=== PATIENT | male | born 1985 | race African-American/Black ===

== ENCOUNTER 2017-02-17 01:37 | Emergency (ER) | payer OTHER ==
[~2017-02-17] VITALS: Ht 172.7 cm; Wt 65.0 kg
[2017-02-17 01:40] VITALS: BP 124/86
== END 2017-02-17 02:30 | disposition left against medical advice (07) ==
LOC: ER 01:37
DX: S41.112A Laceration without foreign body of left upper arm, initial encounter (principal); Z53.21 Procedure and treatment not carried out due to patient leaving prior to being seen by health care provider; X58.XXXA Exposure to other specified factors, initial encounter; Y93.89 Activity, other specified; Y92.89 Other specified places as the place of occurrence of the external cause; Y99.8 Other external cause status

== ENCOUNTER 2023-06-15 12:55 | Emergency (ER) | payer OTHER ==
[~2023-06-15] VITALS: Ht 172.7 cm; Wt 64.0 kg
[2023-06-15 12:59] VITALS: O2SAT 96
[2023-06-15] MEDS: METHYLPREDNISOLONE SOD SUCC 125MG/2ML (ACT-O-VIAL) IV ONE (14:05)
[2023-06-15] MEDS: FAMOTIDINE 20MG/2ML VIAL IV ONE (14:05)
[2023-06-15] MEDS ORDERED: P50 MT (17:22)
[2023-06-15] MEDS ORDERED: DIPH25CA83 MT (17:22)
[2023-06-15] MEDS ORDERED: FAMO-135 MT (17:22)
[2023-06-15] MEDS ORDERED: EPIN0.3P3 IM (17:22)
[2023-06-15 17:33] VITALS: BP 125/71; PULSE 85; RESP 15; TEMP 98.1
== END 2023-06-15 17:35 | disposition home or self-care (01) ==
LOC: ER 12:55
DX: T78.3XXA Angioneurotic edema, initial encounter (principal); F12.10 Cannabis abuse, uncomplicated; Z88.8 Allergy status to other drugs, medicaments and biological substances; Z86.59 Personal history of other mental and behavioral disorders; X58.XXXA Exposure to other specified factors, initial encounter
CPT/HCPCS: 96374; 96375; 99284; J3490; J2930; Z7610